=== PATIENT | male | born 1970 | race Caucasian/White ===

== ENCOUNTER 2016-11-16 03:23 | Emergency (ER) | payer SELFPAY ==
[~2016-11-16] VITALS: Ht 177.8 cm; Wt 115.0 kg
[2016-11-16 03:26] VITALS: BP 144/87
[2016-11-16] MEDS ORDERED: LIDOCAINE 1%-EPI 1:100K, 20ML SQ ONE (04:00)
[2016-11-16] MEDS ORDERED: LIDOCAINE 1%-EPI 1:100K, 30ML ONE (04:11)
[2016-11-16] MEDS ORDERED: BACITRACIN ZINC OINT 500U/GM, 0.9 GM ONE (06:01)
== END 2016-11-16 06:12 | disposition home or self-care (01) ==
LOC: ED 05:11
DX: S06.0X0A Concussion without loss of consciousness, initial encounter (principal); S01.111A Laceration without foreign body of right eyelid and periocular area, initial encounter; Y04.8XXA Assault by other bodily force, initial encounter; Y93.89 Activity, other specified; Y92.89 Other specified places as the place of occurrence of the external cause; Y99.9 Unspecified external cause status
CPT/HCPCS: 12013; 70450; 70486; 99284